=== PATIENT | female | born 1975 | race Caucasian/White ===

== ENCOUNTER 2017-08-21 19:30 | Emergency (ER) | payer MEDICAID, OTHER ==
[2017-08-21] MEDS: AL HYDROX/MG HYDROX/SIMETH 30 ML CUP PO (23:11)
[2017-08-21] MEDS: ALBUTEROL 0.083% (NEB) 2.5 MG/3 ML AMP HHN (23:29)
== END 2017-08-22 02:11 | disposition home or self-care (01) ==
LOC: FTE 08-22 02:11
DX: R07.89 Other chest pain (principal)
CPT/HCPCS: 71046; 94664; 99283-25